=== PATIENT | female | born 1955 | race Asian ===

== ENCOUNTER 2022-05-30 10:44 | Outpatient (CLI) | payer MEDICARE, OTHER | END 2022-05-30 10:45 | disposition home or self-care (01) | LOC: CSHRAD 10:44 | PROVIDERS: ATTEND Internal Medicine | DX: M54.41 Lumbago with sciatica, right side (principal); M47.816 Spondylosis without myelopathy or radiculopathy, lumbar region | CPT/HCPCS: 72100 ==

== ENCOUNTER 2022-06-22 08:26 | Outpatient (CLI) | payer MEDICARE, OTHER | END 2022-06-22 08:27 | disposition home or self-care (01) | LOC: CSHMRI 08:26 | PROVIDERS: ATTEND Internal Medicine | DX: M54.41 Lumbago with sciatica, right side (principal); M51.37 Other intervertebral disc degeneration, lumbosacral region; M51.27 Other intervertebral disc displacement, lumbosacral region | CPT/HCPCS: 72148 ==

== ENCOUNTER 2022-08-02 12:14 | Outpatient (CLI) | payer MEDICARE, OTHER | END 2022-08-02 12:15 | disposition home or self-care (01) | LOC: CSHULT 12:14 | PROVIDERS: ATTEND Internal Medicine | DX: M79.89 Other specified soft tissue disorders (principal); M79.605 Pain in left leg; I82.412 Acute embolism and thrombosis of left femoral vein | CPT/HCPCS: 36415; 80053; 85025; 85610 ==